=== PATIENT | male | born 1965 | race Hispanic/Latino ===

== ENCOUNTER 2024-05-11 14:56 | Inpatient (IN) | payer MEDICARE ==
[2024-05-11] VITALS (13 sets, daily range): BP systolic 123–159; BP diastolic 61–105; PULSE 105–116; RESP 16–33; TEMP 98.6–98.7; O2SAT 92–100
[~2024-05-11] VITALS: Ht 160 cm; Wt 73.0 kg
[~2024-05-11 14:56] MED LIST: EPINEPHRINE HCL 1:1000 1ML 1 MG/ML AMP ONE; ROPIVACAINE 0.5% 5 MG/ML 30 ML SDV ONE
[2024-05-11] MEDS ORDERED: SODIUM CHLORIDE 0.9% 1000ML 1,000 ML IV SCH (15:45)
[2024-05-11 15:53] LABS: BASOPHILS # (AUTO) 0.1 (0.0-0.1); BASOPHILS % 0.5 % (0.0-1.0); EOSINOPHILS # (AUTO) 0.1 (0.0-0.4); EOSINOPHILS % 0.4 % (0.0-6.0); HEMOGLOBIN 14.5 g/dL (14.0-18.0); LYMPHOCYTES # (AUTO) 0.8 (1.0-3.2); LYMPHOCYTES % 3.1 % (18.0-39.1); MEAN CORPUSCULAR HEMOGLOBIN 33.2 pg (28-32); MEAN CORPUSCULAR HGB CONC 34.5 g/dL (31-35); MEAN CORPUSCULAR VOLUME 96.1 fL (81-99); MONOCYTES # (AUTO) 1.7 (0.2-0.8); MONOCYTES % 6.8 % (4.4-11.3); NEUTROPHILS % 86.2 % (38.7-80.0); PLATELET COUNT 441 x10e3/uL (140-360); RED BLOOD COUNT 4.37 x10e6/uL (4.3-5.7); RED CELL DISTRIBUTION WIDTH 12.9 % (11.7-14.4)
[2024-05-11 16:08] LABS: ALBUMIN 2.5 g/dL (3.5-5.0); ALBUMIN/GLOBULIN RATIO 0.6 (0.8-2.0); ANION GAP 23.9 mmol/L (8-16); BILIRUBIN,TOTAL 0.6 mg/dL (0.2-1.2); CALCIUM 9.4 mg/dL (8.4-10.2); CREATININE, SERUM 1.06 mg/dL (0.72-1.25); TOTAL PROTEIN 6.9 g/dL (6.5-8.1)
[2024-05-11 16:17] LABS: POTASSIUM 2.9 mmol/L (3.5-5.1)
[2024-05-11 16:36] LABS: CLARITY,URINE CLEAR (CLEAR); COLOR,URINE YELLOW (YELLOW); GLUCOSE, URINE 500 (NEGATIVE); KETONES,URINE >=160 (NEGATIVE); LEUKOCYTE ESTERASE ,URINE NEGATIVE (NEGATIVE); NITRITE,URINE NEGATIVE (NEGATIVE); PH,URINE 6 (5 - 7); PROTEIN,URINE DIPSTICK 2+ (NEGATIVE)
[2024-05-11 16:37] LABS: BILIRUBIN,URINE SMALL (NEGATIVE); URINE UROBILINOGEN 1 mg/dL (0.2 - 1)
[2024-05-11 16:50] LABS: BACTERIA,URINE MODERATE /HPF; EPITHELIAL CELLS,URINE RARE /LPF; RBC,URINE 0-5 /HPF (0-5)
[2024-05-11] MEDS: LACTATED RINGER'S 1,000 ML INJ ONE ×2 (16:53→16:55)
[2024-05-11] MEDS: POTASSIUM CHLORIDE 20MEQ/100ML 100 ML IV ONE (16:56)
[2024-05-11] MEDS ORDERED: MAGNESIUM SULF 1GRAM/DEXTROSE 100 ML IV PRN (17:15)
[2024-05-11 17:16] LABS: ABG HCO3 5 mmol/L (22-26); ABG PCO2 11 mmHg (35-45); ABG PH 7.23 (7.35-7.45); ABG PO2 73 mmHg (80-105); ABG TCO2 5
[2024-05-11 17:43] LABS: MAGNESIUM 2.3 MG/DL (1.3-2.1)
[2024-05-11] MEDS: SODIUM BICARBONATE 8.4% VIAL 150 ML in DEXTROSE 5% 1,000 ML IV ONE (19:06)
[2024-05-11] MEDS: SODIUM CHLORIDE 0.9% 1000ML 1,000 ML IV SCH (19:16)
[2024-05-11] MEDS: INSULIN REGULAR, HUMAN 3ML VL 100 UNIT in SODIUM CHLORIDE 0.9% 99 ML IV SCH (20:12)
[2024-05-11] MEDS: DEXTROSE 5%/0.45% SOD CHL 1,000 ML IV SCH (21:34)
[2024-05-11] MEDS ORDERED: POLYETHYLENE GLYCOL 3350 17 GM PACK PO PRN (21:45)
[2024-05-11] MEDS ORDERED: ONDANSETRON HCL INJ 2MG/ML 2ML 2 MG/ML VIAL IV PRN (21:45)
[2024-05-11] MEDS ORDERED: MAGNESIUM/ALUMINUM/SIMETHICONE 30 ML UDC PO PRN (21:45)
[2024-05-11 22:16] LABS: ANION GAP 18.7 mmol/L (8-16); CALCIUM 9.2 mg/dL (8.4-10.2); CREATININE, SERUM 0.88 mg/dL (0.72-1.25); MAGNESIUM 2.1 MG/DL (1.3-2.1)
[2024-05-11 22:28] LABS: POTASSIUM 2.7 mmol/L (3.5-5.1)
[2024-05-11] MEDS: POTASSIUM CHLORIDE 20MEQ/100ML 200 ML IV PRN (22:49)
[2024-05-11] MEDS: POTASSIUM CHLORIDE 20MEQ/100ML 200 ML ONE (22:53)
[2024-05-12] VITALS (26 sets, daily range): BP systolic 116–164; BP diastolic 52–111; PULSE 79–119; RESP 18–33; TEMP 98.6–102.2; O2SAT 82–98
[2024-05-12 02:09] LABS: ANION GAP 17.1 mmol/L (8-16); CREATININE, SERUM 0.79 mg/dL (0.72-1.25)
[2024-05-12 02:12] LABS: POTASSIUM 3.1 mmol/L (3.5-5.1)
[2024-05-12] MEDS: ACETAMINOPHEN 325 MG TAB PO PRN (04:33)
[2024-05-12 05:51] LABS: BASOPHILS % 0.2 % (0.0-1.0); EOSINOPHILS # (AUTO) 0.1 (0.0-0.4); EOSINOPHILS % 0.3 % (0.0-6.0); HEMATOCRIT 31.8 % (38.2-49.6); HEMOGLOBIN 11.6 g/dL (14.0-18.0); LYMPHOCYTES % 5.4 % (18.0-39.1); MEAN CORPUSCULAR HEMOGLOBIN 33.6 pg (28-32); MEAN CORPUSCULAR HGB CONC 36.5 g/dL (31-35); MEAN CORPUSCULAR VOLUME 92.2 fL (81-99); MONOCYTES % 5.3 % (4.4-11.3); NEUTROPHILS # (AUTO) 16.5 (2.1-6.9); PLATELET COUNT 339 x10e3/uL (140-360); RED BLOOD COUNT 3.45 x10e6/uL (4.3-5.7); RED CELL DISTRIBUTION WIDTH 12.5 % (11.7-14.4); WHITE BLOOD COUNT 18.98 x10e3/uL (4.8-10.8)
[2024-05-12 06:21] LABS: CHOL/HDL RATIO 8.2 (3.9-4.7)
[2024-05-12 06:22] LABS: ANION GAP 16.4 mmol/L (8-16); CALCIUM 8.5 mg/dL (8.4-10.2); CREATININE, SERUM 0.79 mg/dL (0.72-1.25); MAGNESIUM 2.1 MG/DL (1.3-2.1)
[2024-05-12 06:26] LABS: POTASSIUM 2.4 mmol/L (3.5-5.1)
[2024-05-12] MEDS: POTASSIUM CHLORIDE 20MEQ/100ML 200 ML ONE (06:34)
[2024-05-12] MEDS: MULTIVITAMINS/MINERALS TAB PO SCH (08:26)
[2024-05-12] MEDS: THIAMINE HCL 100 MG TAB PO SCH (08:26)
[2024-05-12] MEDS: DOCUSATE SODIUM 100 MG CAP PO SCH (08:26)
[2024-05-12] MEDS: POTASSIUM CHLORIDE 20 MEQ TAB CR PO ONE (10:26)
[2024-05-12] MEDS: Vancomycin IV 1 GM in SODIUM CHLORIDE 0.9% 250ML 250 ML IV ONE (10:27)
[2024-05-12 12:06] LABS: CALCIUM 9.1 mg/dL (8.4-10.2); CREATININE, SERUM 0.62 mg/dL (0.72-1.25); MAGNESIUM 2.1 MG/DL (1.3-2.1)
[2024-05-12] MEDS: ENOXAPARIN SOD INJ 40 MG/0.4 ML SYR SC SCH (18:28)
[2024-05-12] MEDS: POTASSIUM CHLORIDE 20MEQ/100ML 100 ML IV SCH (18:29)
[2024-05-12] MEDS: SODIUM CHLORIDE 0.9% 250ML 250 ML ONE (20:26)
[2024-05-13] VITALS (27 sets, daily range): BP systolic 101–144; BP diastolic 53–107; PULSE 65–101; RESP 22–38; TEMP 97.8–102.9; O2SAT 94–100
[2024-05-13 00:37] LABS: ANION GAP 11.2 mmol/L (8-16); CALCIUM 8.2 mg/dL (8.4-10.2); CREATININE, SERUM 0.58 mg/dL (0.72-1.25)
[2024-05-13 00:54] LABS: POTASSIUM 3.2 mmol/L (3.5-5.1)
[2024-05-13] MEDS: POTASSIUM CHLORIDE 20MEQ/100ML 100 ML ONE (07:41)
[2024-05-13 08:28] LABS: BASOPHILS # (AUTO) 0.1 (0.0-0.1); BASOPHILS % 0.5 % (0.0-1.0); EOSINOPHILS % 0.1 % (0.0-6.0); HEMATOCRIT 33.6 % (38.2-49.6); HEMOGLOBIN 12.1 g/dL (14.0-18.0); LYMPHOCYTES # (AUTO) 1.7 (1.0-3.2); LYMPHOCYTES % 8.6 % (18.0-39.1); MEAN CORPUSCULAR HEMOGLOBIN 32.9 pg (28-32); MEAN CORPUSCULAR VOLUME 91.3 fL (81-99); MONOCYTES # (AUTO) 1.3 (0.2-0.8); MONOCYTES % 6.6 % (4.4-11.3); NEUTROPHILS # (AUTO) 16.5 (2.1-6.9); NEUTROPHILS % 82.3 % (38.7-80.0); PLATELET COUNT 292 x10e3/uL (140-360); RED BLOOD COUNT 3.68 x10e6/uL (4.3-5.7); RED CELL DISTRIBUTION WIDTH 12.3 % (11.7-14.4); WHITE BLOOD COUNT 20.11 x10e3/uL (4.8-10.8)
[2024-05-13] MEDS: INSULIN GLARGINE 100 UNITS/ML VIAL SQ SCH (08:37)
[2024-05-13 08:45] LABS: ANION GAP 6.9 mmol/L (8-16); CALCIUM 8.7 mg/dL (8.4-10.2); CREATININE, SERUM 0.58 mg/dL (0.72-1.25); MAGNESIUM 1.8 MG/DL (1.3-2.1)
[2024-05-13 08:49] LABS: POTASSIUM 2.9 mmol/L (3.5-5.1)
[2024-05-13] MEDS: POTASSIUM CHLORIDE 20 MEQ TAB CR PO STA (09:01)
[2024-05-13] MEDS: Vancomycin IV 1 GM in SODIUM CHLORIDE 0.9% 250ML 250 ML IV ONE (09:01)
[2024-05-13 10:04] LABS: LYMPHOCYTES % (MANUAL) 7 % (19-48); MONOCYTES % (MANUAL) 7 % (3.4-9.0); NEUTROPHILS % (MANUAL) 86 % (40-74); PLATELET ESTIMATE ADEQUATE; PLATELET MORPHOLOGY COMMENT NORMAL; RBC MORPHOLOGY COMMENT NORMAL
[2024-05-13] MEDS: INSULIN LISPRO 100 UNIT/1 ML 3ML VIAL SQ SCH ×2 (11:10→11:30)
[2024-05-13] MEDS: POTASSIUM CHLORIDE 20 MEQ TAB CR PO ONE (17:01)
[2024-05-13] MEDS: CEFEPIME 2 GM in SODIUM CHLORIDE 0.9% 100 ML IV SCH (20:35)
[2024-05-13 22:51] LABS: ANION GAP 9.4 mmol/L (8-16); CALCIUM 7.9 mg/dL (8.4-10.2); CREATININE, SERUM 0.66 mg/dL (0.72-1.25)
[2024-05-13 22:52] LABS: POTASSIUM 3.4 mmol/L (3.5-5.1)
[2024-05-14] VITALS (18 sets, daily range): BP systolic 122–159; BP diastolic 55–77; PULSE 70–95; RESP 23–32; TEMP 99.1–100.5; O2SAT 91–99
[2024-05-14 06:33] LABS: BASOPHILS # (AUTO) 0.1 (0.0-0.1); BASOPHILS % 0.4 % (0.0-1.0); EOSINOPHILS % 0.1 % (0.0-6.0); HEMATOCRIT 27.4 % (38.2-49.6); HEMOGLOBIN 10.1 g/dL (14.0-18.0); LYMPHOCYTES # (AUTO) 1.4 (1.0-3.2); MEAN CORPUSCULAR HEMOGLOBIN 33.3 pg (28-32); MEAN CORPUSCULAR HGB CONC 36.9 g/dL (31-35); MEAN CORPUSCULAR VOLUME 90.4 fL (81-99); MONOCYTES # (AUTO) 1.2 (0.2-0.8); MONOCYTES % 6.7 % (4.4-11.3); NEUTROPHILS # (AUTO) 14.2 (2.1-6.9); NEUTROPHILS % 82.8 % (38.7-80.0); PLATELET COUNT 240 x10e3/uL (140-360); RED BLOOD COUNT 3.03 x10e6/uL (4.3-5.7); WHITE BLOOD COUNT 17.14 x10e3/uL (4.8-10.8)
[2024-05-14 07:21] LABS: ALBUMIN 1.4 g/dL (3.5-5.0); ALBUMIN/GLOBULIN RATIO 0.5 (0.8-2.0); ANION GAP 9.1 mmol/L (8-16); BILIRUBIN,TOTAL 0.5 mg/dL (0.2-1.2); CALCIUM 7.1 mg/dL (8.4-10.2); CREATININE, SERUM 0.53 mg/dL (0.72-1.25); TOTAL PROTEIN 4.4 g/dL (6.5-8.1)
[2024-05-14 07:22] LABS: POTASSIUM 3.1 mmol/L (3.5-5.1)
[2024-05-14] MEDS: Vancomycin IV 1 GM in SODIUM CHLORIDE 0.9% 250ML 250 ML IV SCH (08:17)
[2024-05-14] MEDS: INSULIN GLARGINE 100 UNITS/ML VIAL SQ SCH (08:19)
[2024-05-14] MEDS ORDERED: SODIUM CHLORIDE 0.9% 1000ML 1,000 ML IV SCH (10:30)
[2024-05-14] MEDS: METRONIDAZOLE 500MG/NS 100ML 100 ML IV SCH (11:01)
[2024-05-14] MEDS: POTASSIUM CHLORIDE 10MEQ EA PO ONE (11:20)
[2024-05-14 18:04] LABS: BODY FLUID TYPE SYNOVIAL
[2024-05-14 18:05] LABS: BODY FLUID APPEARANCE TURBID
[2024-05-14 18:06] LABS: RBC,BODY FLUID 74000 cells/uL
[2024-05-14 19:42] LABS: LYMPHOCYTES,BODY FLUID 64 %; MONO/MACROPHG,BODY FLUID 23 %; NEUTROPHILS,BODY FLUID 13 %; TOTAL CELLS COUNTED (DIFF) 100
[2024-05-15] VITALS (11 sets, daily range): BP systolic 119–152; BP diastolic 64–126; PULSE 60–88; RESP 15–27; TEMP 98.4–100; O2SAT 93–99
[2024-05-15 06:43] LABS: HEMATOCRIT 29.3 % (38.2-49.6); HEMOGLOBIN 10.4 g/dL (14.0-18.0); MEAN CORPUSCULAR HEMOGLOBIN 32.6 pg (28-32); MEAN CORPUSCULAR HGB CONC 35.5 g/dL (31-35); MEAN CORPUSCULAR VOLUME 91.8 fL (81-99); PLATELET COUNT 254 x10e3/uL (140-360); RED BLOOD COUNT 3.19 x10e6/uL (4.3-5.7); WHITE BLOOD COUNT 18.75 x10e3/uL (4.8-10.8)
[2024-05-15 07:24] LABS: ALBUMIN 1.5 g/dL (3.5-5.0); ALBUMIN/GLOBULIN RATIO 0.5 (0.8-2.0); ANION GAP 8.3 mmol/L (8-16); BILIRUBIN,TOTAL 0.6 mg/dL (0.2-1.2); CREATININE, SERUM 0.55 mg/dL (0.72-1.25); TOTAL PROTEIN 4.8 g/dL (6.5-8.1)
[2024-05-15 07:25] LABS: POTASSIUM 3.3 mmol/L (3.5-5.1)
[2024-05-15 11:53] LABS: BAND NEUTROPHILS % (MANUAL) 1 %; EOSINOPHILS % (MANUAL) 1 % (0-7); LYMPHOCYTES % (MANUAL) 2 % (19-48); MONOCYTES % (MANUAL) 1 % (3.4-9.0); NEUTROPHILS % (MANUAL) 93 % (40-74); REACTIVE LYMPHOCYTES 2
[2024-05-15 11:55] LABS: PLATELET ESTIMATE ADEQUATE; PLATELET MORPHOLOGY COMMENT NORMAL; RBC MORPHOLOGY COMMENT NORMAL; TOXIC GRANULATION MODERATE
[2024-05-15] MEDS ORDERED: LIDOCAINE HCL 2% LOCAL INJ 5 ML SDV VIAL INJ ONE (12:21)
[2024-05-15] MEDS ORDERED: PROPOFOL IV EMULSION 10 MG/ML 20 ML VIAL ONE (12:21)
[2024-05-15] MEDS ORDERED: KETOROLAC TROMETHAMINE 30 MG/ML VIAL ONE (12:44)
[2024-05-15] MEDS ORDERED: FENTANYL CITRATE/PF 100MCG/2 ML INJ ONE ×3 (13:30→13:45)
[2024-05-15] MEDS ORDERED: MIDAZOLAM HCL 2 MG/2 ML VIAL ONE (13:45)
[2024-05-15] MEDS ORDERED: Vancomycin IV 1 GM VIAL ONE (15:07)
[2024-05-15 19:01] LABS: GLUCOSE,BODY FLUID 172 mg/dL
[2024-05-16] VITALS (18 sets, daily range): BP systolic 120–159; BP diastolic 61–79; PULSE 62–90; RESP 13–24; TEMP 97.6–99.2; O2SAT 90–100
[2024-05-16 06:33] LABS: HEMATOCRIT 27.9 % (38.2-49.6); HEMOGLOBIN 10.1 g/dL (14.0-18.0); MEAN CORPUSCULAR HEMOGLOBIN 33.7 pg (28-32); MEAN CORPUSCULAR HGB CONC 36.2 g/dL (31-35); PLATELET COUNT 300 x10e3/uL (140-360); RED CELL DISTRIBUTION WIDTH 13.6 % (11.7-14.4); WHITE BLOOD COUNT 19.15 x10e3/uL (4.8-10.8)
[2024-05-16 06:51] LABS: ALBUMIN 1.5 g/dL (3.5-5.0); ALBUMIN/GLOBULIN RATIO 0.4 (0.8-2.0); ANION GAP 9.5 mmol/L (8-16); BILIRUBIN,TOTAL 0.5 mg/dL (0.2-1.2); CALCIUM 7.7 mg/dL (8.4-10.2); CREATININE, SERUM 0.61 mg/dL (0.72-1.25); POTASSIUM 3.5 mmol/L (3.5-5.1); TOTAL PROTEIN 4.9 g/dL (6.5-8.1)
[2024-05-16] MEDS: BALSAM PERU/CASTOR OIL 60 GM OINT...G. TP SCH (08:18)
[2024-05-16 09:20] LABS: MONOCYTES % (MANUAL) 3 % (3.4-9.0); NEUTROPHILS % (MANUAL) 97 % (40-74)
[2024-05-16 09:21] LABS: PLATELET ESTIMATE ADEQUATE; PLATELET MORPHOLOGY COMMENT NORMAL; RBC MORPHOLOGY COMMENT NORMAL
[2024-05-16] MEDS: VANCOMYCIN 1.25GM/250 ML (PEG) 250 ML IV SCH (09:26)
[2024-05-16] MEDS: Morphine 4mg INJECTION 4 MG/ML INJ IV PRN (15:31)
[2024-05-17] VITALS (9 sets, daily range): BP systolic 113–177; BP diastolic 61–79; PULSE 75–88; RESP 18; TEMP 98–99; O2SAT 96–100
[2024-05-17 05:19] LABS: HEMATOCRIT 27.5 % (38.2-49.6); HEMOGLOBIN 9.4 g/dL (14.0-18.0); MEAN CORPUSCULAR HEMOGLOBIN 32.8 pg (28-32); MEAN CORPUSCULAR HGB CONC 34.2 g/dL (31-35); MEAN CORPUSCULAR VOLUME 95.8 fL (81-99); PLATELET COUNT 346 x10e3/uL (140-360); RED BLOOD COUNT 2.87 x10e6/uL (4.3-5.7); RED CELL DISTRIBUTION WIDTH 13.7 % (11.7-14.4); WHITE BLOOD COUNT 16.98 x10e3/uL (4.8-10.8)
[2024-05-17 05:52] LABS: ALBUMIN 1.5 g/dL (3.5-5.0); ALBUMIN/GLOBULIN RATIO 0.4 (0.8-2.0); ANION GAP 11.2 mmol/L (8-16); BILIRUBIN,TOTAL 0.6 mg/dL (0.2-1.2); CALCIUM 7.5 mg/dL (8.4-10.2); CREATININE, SERUM 0.57 mg/dL (0.72-1.25)
[2024-05-17 05:53] LABS: POTASSIUM 3.2 mmol/L (3.5-5.1)
[2024-05-17] MEDS: GUAIFENESIN/DEXTROMETHORPHAN LIQD 5 ML UDC PO PRN (08:18)
[2024-05-17] MEDS: HYDRALAZINE HCL 20 MG/ML VIAL IV PRN (08:21)
[2024-05-17 09:02] LABS: LYMPHOCYTES % (MANUAL) 6 % (19-48); MONOCYTES % (MANUAL) 7 % (3.4-9.0); NEUTROPHILS % (MANUAL) 87 % (40-74); PLATELET ESTIMATE ADEQUATE; PLATELET MORPHOLOGY COMMENT NORMAL; RBC MORPHOLOGY COMMENT NORMAL
[2024-05-17] MEDS ORDERED: GADOBENATE DIMEGLUMINE 1 ML IV ONE (11:31)
[2024-05-17] MEDS: CEFAZOLIN SODIUM 2 GM in SODIUM CHLORIDE 0.9% 100 ML IV SCH (11:53)
[2024-05-17] MEDS: SODIUM CHLORIDE 0.9% 250ML 250 ML ONE (17:21)
[2024-05-18] VITALS (11 sets, daily range): BP systolic 146–171; BP diastolic 63–87; PULSE 76–85; RESP 17–20; TEMP 98.8–100.2; O2SAT 79–100
[2024-05-18 07:00] LABS: HEMATOCRIT 26.3 % (38.2-49.6); MEAN CORPUSCULAR HGB CONC 34.2 g/dL (31-35); MEAN CORPUSCULAR VOLUME 96.3 fL (81-99); PLATELET COUNT 306 x10e3/uL (140-360); RED BLOOD COUNT 2.73 x10e6/uL (4.3-5.7); WHITE BLOOD COUNT 14.04 x10e3/uL (4.8-10.8)
[2024-05-18 07:21] LABS: ALBUMIN 1.5 g/dL (3.5-5.0); ALBUMIN/GLOBULIN RATIO 0.4 (0.8-2.0); BILIRUBIN,TOTAL 0.4 mg/dL (0.2-1.2); CALCIUM 7.6 mg/dL (8.4-10.2); CREATININE, SERUM 0.58 mg/dL (0.72-1.25); TOTAL PROTEIN 5.1 g/dL (6.5-8.1)
[2024-05-18 08:45] LABS: BAND NEUTROPHILS % (MANUAL) 1 %; LYMPHOCYTES % (MANUAL) 4 % (19-48); MONOCYTES % (MANUAL) 3 % (3.4-9.0); NEUTROPHILS % (MANUAL) 92 % (40-74); PLATELET ESTIMATE ADEQUATE; PLATELET MORPHOLOGY COMMENT NORMAL; RBC MORPHOLOGY COMMENT NORMAL
[2024-05-18] MEDS: ENOXAPARIN SOD INJ 40 MG/0.4 ML SYR SC SCH (17:07)
[2024-05-18] MEDS ORDERED: ONDANSETRON HCL 4 MG ORAL DISINTEGRATING TAB PO PRN (19:30)
[2024-05-19] VITALS (7 sets, daily range): BP systolic 135–162; BP diastolic 70–76; PULSE 59–81; RESP 18–20; TEMP 98.8–100.4; O2SAT 93–99
[2024-05-19] MEDS: LIDOCAINE 4% PATCH TP SCH (13:50)
[2024-05-19 16:25] LABS: BASOPHILS % 0.1 % (0.0-1.0); EOSINOPHILS % 0.3 % (0.0-6.0); HEMATOCRIT 24.4 % (38.2-49.6); HEMOGLOBIN 8.4 g/dL (14.0-18.0); LYMPHOCYTES # (AUTO) 1.2 (1.0-3.2); LYMPHOCYTES % 8.9 % (18.0-39.1); MEAN CORPUSCULAR HEMOGLOBIN 33.1 pg (28-32); MEAN CORPUSCULAR HGB CONC 34.4 g/dL (31-35); MEAN CORPUSCULAR VOLUME 96.1 fL (81-99); MONOCYTES # (AUTO) 0.7 (0.2-0.8); MONOCYTES % 4.9 % (4.4-11.3); NEUTROPHILS # (AUTO) 11.6 (2.1-6.9); NEUTROPHILS % 85.1 % (38.7-80.0); PLATELET COUNT 437 x10e3/uL (140-360); RED BLOOD COUNT 2.54 x10e6/uL (4.3-5.7); RED CELL DISTRIBUTION WIDTH 14.3 % (11.7-14.4); WHITE BLOOD COUNT 13.58 x10e3/uL (4.8-10.8)
[2024-05-19 16:41] LABS: ANION GAP 13.6 mmol/L (8-16); CALCIUM 7.6 mg/dL (8.4-10.2); CREATININE, SERUM 0.55 mg/dL (0.72-1.25)
[2024-05-19] MEDS: DEXTROSE 50% SYRINGE 50 ML IV PRN (16:43)
[2024-05-19 16:45] LABS: POTASSIUM 2.6 mmol/L (3.5-5.1)
[2024-05-19] MEDS ORDERED: DEXTROSE 50% SYRINGE 50 ML IV PRN (19:15)
[2024-05-19] MEDS: POTASSIUM CHLORIDE 20MEQ/100ML 100 ML IV ONE (22:11)
[2024-05-20] VITALS (10 sets, daily range): BP systolic 151–180; BP diastolic 73–104; PULSE 56–88; RESP 17–19; TEMP 98.2–99.1; O2SAT 95–100
[2024-05-20 05:20] LABS: HEMATOCRIT 24.8 % (38.2-49.6); HEMOGLOBIN 8.4 g/dL (14.0-18.0); MEAN CORPUSCULAR HEMOGLOBIN 33.2 pg (28-32); MEAN CORPUSCULAR HGB CONC 33.9 g/dL (31-35); PLATELET COUNT 301 x10e3/uL (140-360); RED BLOOD COUNT 2.53 x10e6/uL (4.3-5.7); RED CELL DISTRIBUTION WIDTH 14.3 % (11.7-14.4); WHITE BLOOD COUNT 11.66 x10e3/uL (4.8-10.8)
[2024-05-20 05:40] LABS: ALBUMIN 1.6 g/dL (3.5-5.0); ALBUMIN/GLOBULIN RATIO 0.4 (0.8-2.0); ANION GAP 9.7 mmol/L (8-16); BILIRUBIN,TOTAL 0.4 mg/dL (0.2-1.2); CALCIUM 7.9 mg/dL (8.4-10.2); CREATININE, SERUM 0.53 mg/dL (0.72-1.25); TOTAL PROTEIN 5.3 g/dL (6.5-8.1)
[2024-05-20 05:47] LABS: POTASSIUM 2.7 mmol/L (3.5-5.1)
[2024-05-20] MEDS: POTASSIUM CHLORIDE 20MEQ/100ML 100 ML IV ONE ×2 (06:14→10:15)
[2024-05-20 08:40] LABS: LYMPHOCYTES % (MANUAL) 9 % (19-48); MONOCYTES % (MANUAL) 4 % (3.4-9.0); NEUTROPHILS % (MANUAL) 87 % (40-74)
[2024-05-20 08:41] LABS: PLATELET ESTIMATE ADEQUATE; PLATELET MORPHOLOGY COMMENT NORMAL; RBC MORPHOLOGY COMMENT NORMAL
[2024-05-20] MEDS: POTASSIUM CHLORIDE 20 MEQ TAB CR PO ONE (10:15)
[2024-05-20] MEDS: ALTEPLASE RECOMBINANT 2 MG/2 ML VIAL IV ONE (13:41)
[2024-05-21] VITALS (10 sets, daily range): BP systolic 137–175; BP diastolic 63–98; PULSE 62–89; RESP 18; TEMP 98–99.4; O2SAT 92–98
[2024-05-21 09:38] LABS: BASOPHILS % 0.3 % (0.0-1.0); EOSINOPHILS % 0.4 % (0.0-6.0); HEMATOCRIT 24.6 % (38.2-49.6); HEMOGLOBIN 8.3 g/dL (14.0-18.0); LYMPHOCYTES # (AUTO) 1.1 (1.0-3.2); LYMPHOCYTES % 10.9 % (18.0-39.1); MEAN CORPUSCULAR HEMOGLOBIN 32.9 pg (28-32); MEAN CORPUSCULAR HGB CONC 33.7 g/dL (31-35); MEAN CORPUSCULAR VOLUME 97.6 fL (81-99); MONOCYTES # (AUTO) 0.5 (0.2-0.8); MONOCYTES % 4.9 % (4.4-11.3); NEUTROPHILS # (AUTO) 8.6 (2.1-6.9); PLATELET COUNT 434 x10e3/uL (140-360); RED BLOOD COUNT 2.52 x10e6/uL (4.3-5.7); RED CELL DISTRIBUTION WIDTH 14.2 % (11.7-14.4); WHITE BLOOD COUNT 10.35 x10e3/uL (4.8-10.8)
[2024-05-21 09:54] LABS: ANION GAP 15.2 mmol/L (8-16); CREATININE, SERUM 0.54 mg/dL (0.72-1.25); MAGNESIUM 1.8 MG/DL (1.3-2.1); PHOSPHORUS 3.1 MG/DL (2.3-4.7)
[2024-05-21 09:55] LABS: POTASSIUM 3.2 mmol/L (3.5-5.1)
[2024-05-21] MEDS: POTASSIUM CHLORIDE 10MEQ EA PO ONE (11:37)
[2024-05-21] MEDS: SODIUM CHLORIDE 1 GM TAB PO SCH (11:38)
[2024-05-22] VITALS (8 sets, daily range): BP systolic 140–184; BP diastolic 73–99; PULSE 70–82; RESP 18–20; TEMP 97.7–99.9; O2SAT 94–99
[2024-05-22] MEDS: MELATONIN 3 MG TAB PO PRN (00:13)
[2024-05-22 05:56] LABS: BASOPHILS % 0.3 % (0.0-1.0); EOSINOPHILS # (AUTO) 0.1 (0.0-0.4); EOSINOPHILS % 0.8 % (0.0-6.0); HEMATOCRIT 23.5 % (38.2-49.6); HEMOGLOBIN 7.9 g/dL (14.0-18.0); LYMPHOCYTES # (AUTO) 1.8 (1.0-3.2); LYMPHOCYTES % 17.3 % (18.0-39.1); MEAN CORPUSCULAR HEMOGLOBIN 33.1 pg (28-32); MEAN CORPUSCULAR HGB CONC 33.6 g/dL (31-35); MEAN CORPUSCULAR VOLUME 98.3 fL (81-99); MONOCYTES # (AUTO) 0.6 (0.2-0.8); MONOCYTES % 5.8 % (4.4-11.3); NEUTROPHILS # (AUTO) 7.9 (2.1-6.9); NEUTROPHILS % 75.5 % (38.7-80.0); PLATELET COUNT 528 x10e3/uL (140-360); RED BLOOD COUNT 2.39 x10e6/uL (4.3-5.7); RED CELL DISTRIBUTION WIDTH 14.3 % (11.7-14.4); WHITE BLOOD COUNT 10.43 x10e3/uL (4.8-10.8)
[2024-05-22 06:20] LABS: ANION GAP 9.9 mmol/L (8-16); CALCIUM 7.9 mg/dL (8.4-10.2); CREATININE, SERUM 0.52 mg/dL (0.72-1.25); POTASSIUM 3.9 mmol/L (3.5-5.1)
[2024-05-22 06:37] LABS: MAGNESIUM 1.8 MG/DL (1.3-2.1); PHOSPHORUS 3.8 MG/DL (2.3-4.7)
[2024-05-23] VITALS (9 sets, daily range): BP systolic 133–171; BP diastolic 68–85; PULSE 69–87; RESP 17–22; TEMP 98.3–100; O2SAT 88–100
[2024-05-23] MEDS: Morphine 4mg INJECTION 4 MG/ML INJ IV PRN (21:34)
[2024-05-24] VITALS (10 sets, daily range): BP systolic 103–174; BP diastolic 59–85; PULSE 71–87; RESP 17–19; TEMP 98.2–100.5; O2SAT 94–99
[2024-05-24 06:12] LABS: BASOPHILS % 0.3 % (0.0-1.0); EOSINOPHILS # (AUTO) 0.1 (0.0-0.4); EOSINOPHILS % 0.7 % (0.0-6.0); HEMATOCRIT 24.2 % (38.2-49.6); HEMOGLOBIN 7.9 g/dL (14.0-18.0); LYMPHOCYTES # (AUTO) 1.6 (1.0-3.2); LYMPHOCYTES % 16.8 % (18.0-39.1); MEAN CORPUSCULAR HEMOGLOBIN 32.4 pg (28-32); MEAN CORPUSCULAR HGB CONC 32.6 g/dL (31-35); MEAN CORPUSCULAR VOLUME 99.2 fL (81-99); MONOCYTES # (AUTO) 0.6 (0.2-0.8); MONOCYTES % 6.5 % (4.4-11.3); NEUTROPHILS % 75.3 % (38.7-80.0); PLATELET COUNT 476 x10e3/uL (140-360); RED BLOOD COUNT 2.44 x10e6/uL (4.3-5.7); RED CELL DISTRIBUTION WIDTH 14.1 % (11.7-14.4); WHITE BLOOD COUNT 9.34 x10e3/uL (4.8-10.8)
[2024-05-24 06:57] LABS: BLOOD UREA NITROGEN < 5 mg/dL (7-26); BUN/CREATININE RATIO 9 (6-25); CALCIUM 7.1 mg/dL (8.4-10.2); CREATININE, SERUM 0.53 mg/dL (0.72-1.25); EST GLOMERULAR FILTRATION RATE 114 ML/MIN (>=60); GLUCOSE 129 mg/dL (74-118)
[2024-05-24] MEDS ORDERED: Vancomycin IV 1 GM VIAL ONE (07:56)
[2024-05-24 08:59] LABS: CHLORIDE 101 mmol/L (98-107); POTASSIUM 3.6 mmol/L (3.5-5.1); SODIUM 130 mmol/L (136-145)
[2024-05-24 10:23] LABS: CARBON DIOXIDE 21 mmol/L (22-29)
[2024-05-24 10:25] LABS: ANION GAP 11.6 mmol/L (8-16)
[2024-05-24] MEDS: HYDROMORPHONE 1MG/1ML INJ ONE (11:32)
[2024-05-24] MEDS ORDERED: FENTANYL CITRATE/PF 100MCG/2 ML INJ ONE (14:03)
[2024-05-24] MEDS ORDERED: MIDAZOLAM HCL 2 MG/2 ML VIAL ONE (14:03)
[2024-05-24] MEDS ORDERED: DEXAMETHASONE SOD PHOS INJ 4 MG/ML SDV ONE (14:06)
[2024-05-24] MEDS ORDERED: EPHEDRINE SULFATE INJ 50 MG/ML VIAL ONE (14:06)
[2024-05-24] MEDS ORDERED: PROPOFOL IV EMULSION 10 MG/ML 20 ML VIAL ONE (14:06)
[2024-05-24] MEDS ORDERED: ONDANSETRON HCL INJ 2MG/ML 2ML 2 MG/ML VIAL ONE (14:06)
[2024-05-24] MEDS ORDERED: SEVOFLURANE INHAL SOLN 250 ML PEN BTL ONE (14:06)
[2024-05-24] MEDS ORDERED: SODIUM CHLORIDE 0.9% 100 ML ONE (17:03)
[2024-05-25] VITALS (13 sets, daily range): BP systolic 116–161; BP diastolic 57–77; PULSE 70–96; RESP 16–20; TEMP 98–99.2; O2SAT 93–99
[2024-05-25] MEDS: SODIUM CHLORIDE 0.9% 250ML 250 ML ONE ×2 (00:30→23:58)
[2024-05-25 10:45] LABS: ALBUMIN 1.7 g/dL (3.5-5.0); ALBUMIN/GLOBULIN RATIO 0.6 (0.8-2.0); BILIRUBIN,TOTAL 0.4 mg/dL (0.2-1.2); CREATININE, SERUM 0.49 mg/dL (0.72-1.25); TOTAL PROTEIN 4.5 g/dL (6.5-8.1)
[2024-05-25 10:50] LABS: BASOPHILS % 0.5 % (0.0-1.0); EOSINOPHILS % 0.2 % (0.0-6.0); HEMATOCRIT 21.2 % (38.2-49.6); LYMPHOCYTES # (AUTO) 0.9 (1.0-3.2); LYMPHOCYTES % 10.5 % (18.0-39.1); MEAN CORPUSCULAR HEMOGLOBIN 32.4 pg (28-32); MEAN CORPUSCULAR HGB CONC 32.1 g/dL (31-35); MONOCYTES # (AUTO) 0.6 (0.2-0.8); MONOCYTES % 7.3 % (4.4-11.3); NEUTROPHILS % 81.2 % (38.7-80.0); PLATELET COUNT 425 x10e3/uL (140-360); WHITE BLOOD COUNT 8.66 x10e3/uL (4.8-10.8)
[2024-05-25 11:06] LABS: HEMOGLOBIN 6.8 g/dL (14.0-18.0)
[2024-05-25 16:30] LABS: ANION GAP 14.3 mmol/L (8-16); CALCIUM 7.3 mg/dL (8.4-10.2); POTASSIUM 4.3 mmol/L (3.5-5.1)
[2024-05-25 20:41] LABS: HEMATOCRIT 21.5 % (38.2-49.6)
[2024-05-25 20:45] LABS: HEMOGLOBIN 6.9 g/dL (14.0-18.0)
[2024-05-25] MEDS: SODIUM CHLORIDE 0.9% 250ML 250 ML IV ONE (23:58)
[2024-05-26] VITALS (10 sets, daily range): BP systolic 153–183; BP diastolic 75–86; PULSE 71–88; RESP 16–22; TEMP 97.7–98.4; O2SAT 95–98
[2024-05-26] MEDS: SODIUM CHLORIDE 0.9% 250ML 250 ML ONE (02:11)
[2024-05-26 09:31] LABS: HEMATOCRIT 28.8 % (38.2-49.6); HEMOGLOBIN 9.5 g/dL (14.0-18.0)
[2024-05-26] MEDS: PANTOPRAZOLE SOD 40 MG TABEC PO SCH (14:39)
[2024-05-27] VITALS (8 sets, daily range): BP systolic 145–182; BP diastolic 66–88; PULSE 72–86; RESP 16–20; TEMP 97.8–99.2; O2SAT 93–98
[2024-05-27 06:20] LABS: BASOPHILS % 0.4 % (0.0-1.0); EOSINOPHILS # (AUTO) 0.1 (0.0-0.4); EOSINOPHILS % 1.1 % (0.0-6.0); HEMATOCRIT 26.7 % (38.2-49.6); HEMOGLOBIN 8.7 g/dL (14.0-18.0); LYMPHOCYTES # (AUTO) 1.4 (1.0-3.2); LYMPHOCYTES % 19.2 % (18.0-39.1); MEAN CORPUSCULAR HEMOGLOBIN 31.8 pg (28-32); MEAN CORPUSCULAR HGB CONC 32.6 g/dL (31-35); MEAN CORPUSCULAR VOLUME 97.4 fL (81-99); MONOCYTES # (AUTO) 0.6 (0.2-0.8); MONOCYTES % 8.1 % (4.4-11.3); NEUTROPHILS % 70.6 % (38.7-80.0); PLATELET COUNT 327 x10e3/uL (140-360); RED BLOOD COUNT 2.74 x10e6/uL (4.3-5.7); RED CELL DISTRIBUTION WIDTH 15.5 % (11.7-14.4); WHITE BLOOD COUNT 7.13 x10e3/uL (4.8-10.8)
[2024-05-28] VITALS (8 sets, daily range): BP systolic 163–188; BP diastolic 80–88; PULSE 68–83; RESP 16–20; TEMP 98.2–99.2; O2SAT 94–98
[2024-05-28 12:16] LABS: BASOPHILS % 0.5 % (0.0-1.0); EOSINOPHILS # (AUTO) 0.1 (0.0-0.4); EOSINOPHILS % 1.1 % (0.0-6.0); HEMATOCRIT 28.9 % (38.2-49.6); HEMOGLOBIN 9.4 g/dL (14.0-18.0); LYMPHOCYTES # (AUTO) 1.5 (1.0-3.2); LYMPHOCYTES % 22.6 % (18.0-39.1); MEAN CORPUSCULAR HEMOGLOBIN 31.6 pg (28-32); MEAN CORPUSCULAR HGB CONC 32.5 g/dL (31-35); MEAN CORPUSCULAR VOLUME 97.3 fL (81-99); MONOCYTES # (AUTO) 0.5 (0.2-0.8); MONOCYTES % 7.6 % (4.4-11.3); NEUTROPHILS # (AUTO) 4.5 (2.1-6.9); NEUTROPHILS % 67.9 % (38.7-80.0); PLATELET COUNT 357 x10e3/uL (140-360); RED BLOOD COUNT 2.97 x10e6/uL (4.3-5.7); RED CELL DISTRIBUTION WIDTH 15.2 % (11.7-14.4); WHITE BLOOD COUNT 6.59 x10e3/uL (4.8-10.8)
[2024-05-28] MEDS: METOPROLOL TARTRATE 25 MG TAB PO SCH (14:44)
== END 2024-05-28 17:35 | DRG 853 ==
LOC: ER 15:16 → ERHOLD 17:30 → ICU 18:22 → MED/SURG2 05-16 16:27
PROVIDERS: ADMIT Internal Medicine; ATTEND Internal Medicine
PROC: 4A033R1 Measurement of Arterial Saturation, Peripheral, Percutaneous Approach (ICD-10-PCS; 2024-05-11)
PROC: 3E0333Z Introduction of Anti-inflammatory into Peripheral Vein, Percutaneous Approach (ICD-10-PCS; 2024-05-11)
PROC: 0S9D4ZZ Drainage of Left Knee Joint, Percutaneous Endoscopic Approach (ICD-10-PCS; 2024-05-15)
PROC: 0S9D0ZZ Drainage of Left Knee Joint, Open Approach (ICD-10-PCS; 2024-05-24)
PROC: 0QDH0ZZ Extraction of Left Tibia, Open Approach (ICD-10-PCS; 2024-05-24)
PROC: 0QDC0ZZ Extraction of Left Lower Femur, Open Approach (ICD-10-PCS; principal; 2024-05-24 08:22)
PROC: 30233N1 Transfusion of Nonautologous Red Blood Cells into Peripheral Vein, Percutaneous Approach (ICD-10-PCS; 2024-05-25)
DX: A41.01 Sepsis due to Methicillin susceptible Staphylococcus aureus (principal); E11.10 Type 2 diabetes mellitus with ketoacidosis without coma; J96.01 Acute respiratory failure with hypoxia; M00.862 Arthritis due to other bacteria, left knee; N39.0 Urinary tract infection, site not specified; E87.4 Mixed disorder of acid-base balance; M60.004 Infective myositis, unspecified left leg; M86.9 Osteomyelitis, unspecified; M25.462 Effusion, left knee; F10.20 Alcohol dependence, uncomplicated; R53.1 Weakness; M71.562 Other bursitis, not elsewhere classified, left knee; E87.6 Hypokalemia; D64.9 Anemia, unspecified; Z89.431 Acquired absence of right foot; W18.30XA Fall on same level, unspecified, initial encounter
CPT/HCPCS: 36415; 36569; 36600; 51700; 71045; 80048; 80053; 80061; 80202; 81001; 82805; 82945; 82948; 83036; 83605; 83735; 84100; 84132; 84443; 85007; 85014; 85018; 85025; 85027; 85651; 86140; 86850; 86900; 86920; 87040; 87070; 87071; 87075; 87086; 87186; 87205; 89051; 89060; 93005; 93306; 93971; 94799; 96372; 99252; 99285; J0171; J0360; J0690; J0692; J1100; J1170; J1650; J1815; J1885; J2001; J2250; J2270; J2405; J2543; J2795; J2997; J3411; J3480; J7030; J7050; J7070; P9016

== ENCOUNTER 2024-07-23 18:06 | Inpatient (IN) | payer MEDICARE ==
[~2024-07-23] VITALS: Ht 160 cm; Wt 73.1 kg
[2024-07-23 19:23] LABS: BASOPHILS # (AUTO) 0.1 (0.0-0.1); BASOPHILS % 0.3 % (0.0-1.0); EOSINOPHILS % 0.1 % (0.0-6.0); HEMATOCRIT 30.9 % (38.2-49.6); HEMOGLOBIN 9.9 g/dL (14.0-18.0); LYMPHOCYTES # (AUTO) 1.6 (1.0-3.2); LYMPHOCYTES % 8.2 % (18.0-39.1); MEAN CORPUSCULAR HEMOGLOBIN 28.9 pg (28-32); MEAN CORPUSCULAR VOLUME 90.4 fL (81-99); MONOCYTES # (AUTO) 1.5 (0.2-0.8); MONOCYTES % 7.6 % (4.4-11.3); NEUTROPHILS % 83.2 % (38.7-80.0); PLATELET COUNT 278 x10e3/uL (140-360); RED BLOOD COUNT 3.42 x10e6/uL (4.3-5.7); RED CELL DISTRIBUTION WIDTH 13.8 % (11.7-14.4); WHITE BLOOD COUNT 19.27 x10e3/uL (4.8-10.8)
[2024-07-23] MEDS: SODIUM CHLORIDE 0.9% 1000ML 1,000 ML IV ONE (19:29)
[2024-07-23] MEDS: ACETAMINOPHEN 325 MG TAB PO ONE (19:29)
[2024-07-23 19:34] LABS: INR 1.13; PROTHROMBIN TIME 15.1 seconds (11.9-14.5)
[2024-07-23 19:35] LABS: PARTIAL THROMBOPLASTIN TIME 40.4 seconds (23.8-35.5)
[2024-07-23 19:44] LABS: ALANINE AMINOTRANSFERASE 44 IU/L (0-55); ALBUMIN 2.1 g/dL (3.5-5.0); ALBUMIN/GLOBULIN RATIO 0.4 (0.8-2.0); ALKALINE PHOSPHATASE 148 IU/L (40-150); ANION GAP 15.8 mmol/L (8-16); BILIRUBIN,TOTAL 0.4 mg/dL (0.2-1.2); BLOOD UREA NITROGEN 13 mg/dL (7-26); BUN/CREATININE RATIO 20 (6-25); CALCIUM 8.7 mg/dL (8.4-10.2); CARBON DIOXIDE 20 mmol/L (22-29); CHLORIDE 98 mmol/L (98-107); CREATININE, SERUM 0.65 mg/dL (0.72-1.25); EST GLOMERULAR FILTRATION RATE 107 ML/MIN (>=60); GLUCOSE 74 mg/dL (74-118); SODIUM 131 mmol/L (136-145); TOTAL PROTEIN 6.9 g/dL (6.5-8.1)
[2024-07-23 19:47] LABS: CREATINE KINASE < 7 IU/L (30-200)
[2024-07-23 19:48] LABS: POTASSIUM 2.8 mmol/L (3.5-5.1)
[2024-07-23 19:50] LABS: TROPONIN I 0.007 ng/mL (0-0.300)
[2024-07-23] MEDS ORDERED: DEXTROSE 50% SYRINGE 50 ML IV PRN (20:15)
[2024-07-23] MEDS ORDERED: KCL 20MEQ/.9 SOD CHL 1,000 ML IV ONE (20:15)
[2024-07-23] MEDS ORDERED: IOPAMIDOL 370 MG/ML 100 ML INFUS..BTL INJ ONE (20:30)
[2024-07-23 20:35] VITALS: PULSE 79; RESP 20; O2SAT 95
[2024-07-23] MEDS: POTASSIUM CHLORIDE 20 MEQ TAB CR PO STA (20:45)
[2024-07-23] MEDS: Vancomycin IV 1 GM in SODIUM CHLORIDE 0.9% 250ML 250 ML IV SCH (20:46)
[2024-07-23 20:51] VITALS: PULSE 82; RESP 25; TEMP 100.1
[2024-07-23] MEDS: INSULIN REGULAR, HUMAN 100 UNIT/1 ML SQ SCH (21:00)
[2024-07-23 21:14] LABS: BILIRUBIN,URINE SMALL (NEGATIVE); CLARITY,URINE SL CLOUDY (CLEAR); COLOR,URINE YELLOW (YELLOW); GLUCOSE, URINE NEGATIVE (NEGATIVE); KETONES,URINE TRACE (NEGATIVE); LEUKOCYTE ESTERASE ,URINE SMALL (NEGATIVE); NITRITE,URINE NEGATIVE (NEGATIVE); PH,URINE 5.5 (5 - 7); PROTEIN,URINE DIPSTICK 2+ (NEGATIVE); URINE UROBILINOGEN 2 mg/dL (0.2 - 1)
[2024-07-23 21:27] LABS: AMORPHOUS SEDIMENT,URINE MODERATE (FEW); BACTERIA,URINE MODERATE /HPF; YEAST,URINE MODERATE
[2024-07-23 22:40] VITALS: BP 120/62; PULSE 80; RESP 18; TEMP 97.8; O2SAT 94
[2024-07-24] VITALS (8 sets, daily range): BP systolic 119–146; BP diastolic 51–77; PULSE 88–95; RESP 18–19; TEMP 97.8–102.5; O2SAT 95–100
[2024-07-24] MEDS: KCL 20MEQ/.9 SOD CHL 1,000 ML IV ONE (00:44)
[2024-07-24] MEDS ORDERED: BENZONATATE 100 MG CAP PO PRN (00:45)
[2024-07-24] MEDS ORDERED: DEXTROSE 50% SYRINGE 50 ML IV PRN (00:45)
[2024-07-24] MEDS ORDERED: ALBUTEROL/IPRATROPIUM 3 ML NEB NEB PRN (00:45)
[2024-07-24] MEDS ORDERED: DIPHENHYDRAMINE HCL 25 MG CAP PO PRN (00:45)
[2024-07-24] MEDS ORDERED: DOCUSATE SODIUM 100 MG CAP PO PRN (00:45)
[2024-07-24] MEDS ORDERED: POTASSIUM CHLORIDE 20 MEQ TAB CR PO PRN (00:45)
[2024-07-24] MEDS ORDERED: ACETAMINOPHEN 325 MG TAB PO PRN (00:45)
[2024-07-24] MEDS ORDERED: SIMETHICONE 80 MG CHEW PO PRN (00:45)
[2024-07-24] MEDS: Morphine 4mg INJECTION 4 MG/ML INJ IV PRN (01:14)
[2024-07-24 06:29] LABS: BASOPHILS # (AUTO) 0.1 (0.0-0.1); BASOPHILS % 0.3 % (0.0-1.0); EOSINOPHILS % 0.1 % (0.0-6.0); HEMATOCRIT 32.1 % (38.2-49.6); HEMOGLOBIN 10.3 g/dL (14.0-18.0); LYMPHOCYTES # (AUTO) 1.7 (1.0-3.2); LYMPHOCYTES % 8.9 % (18.0-39.1); MEAN CORPUSCULAR HEMOGLOBIN 29.4 pg (28-32); MEAN CORPUSCULAR HGB CONC 32.1 g/dL (31-35); MEAN CORPUSCULAR VOLUME 91.7 fL (81-99); MONOCYTES # (AUTO) 1.3 (0.2-0.8); MONOCYTES % 6.6 % (4.4-11.3); NEUTROPHILS # (AUTO) 15.7 (2.1-6.9); NEUTROPHILS % 83.5 % (38.7-80.0); PLATELET COUNT 392 x10e3/uL (140-360); RED CELL DISTRIBUTION WIDTH 13.8 % (11.7-14.4)
[2024-07-24 06:58] LABS: ANION GAP 10.3 mmol/L (8-16); BILIRUBIN,TOTAL 0.5 mg/dL (0.2-1.2); CALCIUM 8.3 mg/dL (8.4-10.2); CREATININE, SERUM 0.54 mg/dL (0.72-1.25); TOTAL PROTEIN 6.6 g/dL (6.5-8.1)
[2024-07-24 06:59] LABS: POTASSIUM 3.3 mmol/L (3.5-5.1)
[2024-07-24 07:06] LABS: ALBUMIN 1.9 g/dL (3.5-5.0); ALBUMIN/GLOBULIN RATIO 0.4 (0.8-2.0)
[2024-07-24] MEDS: PANTOPRAZOLE SOD 40 MG TABEC PO SCH (08:37)
[2024-07-24] MEDS: Vancomycin IV 1 GM in SODIUM CHLORIDE 0.9% 250ML 250 ML IV SCH (08:37)
[2024-07-24] MEDS ORDERED: ENOXAPARIN SOD INJ 40 MG/0.4 ML SYR SC SCH (17:00)
[2024-07-24] MEDS: ENOXAPARIN SOD INJ 40 MG/0.4 ML SYR SC SCH (17:51)
[2024-07-24] MEDS: MELATONIN 5 MG TABLET PO PRN (20:35)
[2024-07-25] VITALS (9 sets, daily range): BP systolic 115–168; BP diastolic 57–80; PULSE 68–95; RESP 16–20; TEMP 97.8–98.4; O2SAT 94–100
[2024-07-25 06:37] LABS: BASOPHILS # (AUTO) 0.1 (0.0-0.1); BASOPHILS % 0.4 % (0.0-1.0); EOSINOPHILS # (AUTO) 0.1 (0.0-0.4); EOSINOPHILS % 0.3 % (0.0-6.0); HEMATOCRIT 29.8 % (38.2-49.6); HEMOGLOBIN 9.5 g/dL (14.0-18.0); LYMPHOCYTES % 10.7 % (18.0-39.1); MEAN CORPUSCULAR HEMOGLOBIN 29.4 pg (28-32); MEAN CORPUSCULAR HGB CONC 31.9 g/dL (31-35); MEAN CORPUSCULAR VOLUME 92.3 fL (81-99); MONOCYTES # (AUTO) 1.3 (0.2-0.8); NEUTROPHILS # (AUTO) 15.1 (2.1-6.9); NEUTROPHILS % 80.6 % (38.7-80.0); PLATELET COUNT 354 x10e3/uL (140-360); RED BLOOD COUNT 3.23 x10e6/uL (4.3-5.7); WHITE BLOOD COUNT 18.73 x10e3/uL (4.8-10.8)
[2024-07-25 07:06] LABS: ANION GAP 14.3 mmol/L (8-16); CALCIUM 8.5 mg/dL (8.4-10.2); CREATININE, SERUM 0.56 mg/dL (0.72-1.25)
[2024-07-25 07:14] LABS: POTASSIUM 3.3 mmol/L (3.5-5.1)
[2024-07-25] MEDS ORDERED: FENTANYL CITRATE/PF 100MCG/2 ML INJ ONE ×3 (12:56→14:16)
[2024-07-25] MEDS ORDERED: LIDOCAINE HCL 2% LOCAL INJ 5 ML SDV VIAL INJ ONE (12:56)
[2024-07-25] MEDS ORDERED: MIDAZOLAM HCL 2 MG/2 ML VIAL ONE (12:56)
[2024-07-25] MEDS ORDERED: PROPOFOL IV EMULSION 10 MG/ML 20 ML VIAL ONE (12:57)
[2024-07-25] MEDS ORDERED: ACETAMINOPHEN 1000 MG/100 ML 100 ML IV ONE (12:57)
[2024-07-25] MEDS ORDERED: BUPIVACAINE HCL 0.5% INJ 30 ML VIAL INJ ONE (13:23)
[2024-07-25] MEDS ORDERED: Vancomycin IV 1 GM VIAL ONE ×3 (13:23→14:29)
[2024-07-25] MEDS ORDERED: BUPIVACAINE 0.25% 30ML SDV ONE (13:31)
[2024-07-25] MEDS ORDERED: EPINEPHRINE HCL 1:1000 1ML 1 MG/ML AMP ONE (13:32)
[2024-07-25] MEDS ORDERED: DEXAMETHASONE SOD PHOS INJ 4 MG/ML SDV ONE (14:04)
[2024-07-25] MEDS ORDERED: ONDANSETRON HCL INJ 2MG/ML 2ML 2 MG/ML VIAL ONE (14:04)
[2024-07-25] MEDS ORDERED: HYDROMORPHONE 2MG/ML ONE (14:21)
[2024-07-25] MEDS: ONDANSETRON HCL INJ 2MG/ML 2ML 2 MG/ML VIAL IV PRN (21:00)
[2024-07-26] VITALS (9 sets, daily range): BP systolic 119–157; BP diastolic 50–88; PULSE 58–79; RESP 17–20; TEMP 97.6–99.4; O2SAT 96–100
[2024-07-26 06:10] LABS: BASOPHILS # (AUTO) 0.1 (0.0-0.1); BASOPHILS % 0.3 % (0.0-1.0); HEMATOCRIT 25.8 % (38.2-49.6); HEMOGLOBIN 8.3 g/dL (14.0-18.0); LYMPHOCYTES # (AUTO) 1.6 (1.0-3.2); LYMPHOCYTES % 6.4 % (18.0-39.1); MEAN CORPUSCULAR HEMOGLOBIN 29.3 pg (28-32); MEAN CORPUSCULAR HGB CONC 32.2 g/dL (31-35); MEAN CORPUSCULAR VOLUME 91.2 fL (81-99); MONOCYTES % 4.1 % (4.4-11.3); NEUTROPHILS # (AUTO) 21.9 (2.1-6.9); NEUTROPHILS % 88.1 % (38.7-80.0); PLATELET COUNT 474 x10e3/uL (140-360); RED BLOOD COUNT 2.83 x10e6/uL (4.3-5.7); WHITE BLOOD COUNT 24.86 x10e3/uL (4.8-10.8)
[2024-07-26 06:42] LABS: ANION GAP 13.8 mmol/L (8-16); CALCIUM 8.6 mg/dL (8.4-10.2); CREATININE, SERUM 0.63 mg/dL (0.72-1.25); POTASSIUM 3.8 mmol/L (3.5-5.1)
[2024-07-26 08:46] LABS: LYMPHOCYTES % (MANUAL) 7 % (19-48); MONOCYTES % (MANUAL) 3 % (3.4-9.0); MYELOCYTES % (MANUAL) 1 % (0-0); NEUTROPHILS % (MANUAL) 89 % (40-74); PLATELET ESTIMATE ADEQUATE; PLATELET MORPHOLOGY COMMENT NORMAL; RBC MORPHOLOGY COMMENT NORMAL
[2024-07-26] MEDS: RIFAMPIN 300 MG CAP PO SCH (17:34)
[2024-07-26] MEDS ORDERED: VANCOMYCIN 1.25GM/250 ML (PEG) 250 ML IV ONE (20:00)
[2024-07-26] MEDS: VANCOMYCIN 1.25GM/250 ML (PEG) 250 ML IV SCH (21:33)
[2024-07-27] VITALS (9 sets, daily range): BP systolic 123–181; BP diastolic 63–80; PULSE 72–82; RESP 14–18; TEMP 98.6–99.8; O2SAT 96–100
[2024-07-27 06:03] LABS: BASOPHILS # (AUTO) 0.1 (0.0-0.1); BASOPHILS % 0.3 % (0.0-1.0); EOSINOPHILS # (AUTO) 0.1 (0.0-0.4); EOSINOPHILS % 0.4 % (0.0-6.0); HEMATOCRIT 25.7 % (38.2-49.6); HEMOGLOBIN 8.2 g/dL (14.0-18.0); LYMPHOCYTES # (AUTO) 2.6 (1.0-3.2); LYMPHOCYTES % 15.6 % (18.0-39.1); MEAN CORPUSCULAR HEMOGLOBIN 29.8 pg (28-32); MEAN CORPUSCULAR HGB CONC 31.9 g/dL (31-35); MEAN CORPUSCULAR VOLUME 93.5 fL (81-99); MONOCYTES % 5.9 % (4.4-11.3); NEUTROPHILS # (AUTO) 12.7 (2.1-6.9); NEUTROPHILS % 76.2 % (38.7-80.0); PLATELET COUNT 471 x10e3/uL (140-360); RED BLOOD COUNT 2.75 x10e6/uL (4.3-5.7); RED CELL DISTRIBUTION WIDTH 14.1 % (11.7-14.4)
[2024-07-27 06:23] LABS: ANION GAP 12.8 mmol/L (8-16); CREATININE, SERUM 0.61 mg/dL (0.72-1.25); POTASSIUM 3.8 mmol/L (3.5-5.1)
[2024-07-27] MEDS: HYDRALAZINE HCL 20 MG/ML VIAL IV PRN (11:52)
[2024-07-28] VITALS (10 sets, daily range): BP systolic 159–177; BP diastolic 66–72; PULSE 69–85; RESP 16–20; TEMP 97.7–98.4; O2SAT 97–100
[2024-07-28 05:29] LABS: BASOPHILS % 0.2 % (0.0-1.0); EOSINOPHILS # (AUTO) 0.1 (0.0-0.4); EOSINOPHILS % 0.6 % (0.0-6.0); HEMATOCRIT 25.1 % (38.2-49.6); LYMPHOCYTES # (AUTO) 2.1 (1.0-3.2); LYMPHOCYTES % 12.8 % (18.0-39.1); MEAN CORPUSCULAR HEMOGLOBIN 29.4 pg (28-32); MEAN CORPUSCULAR HGB CONC 31.9 g/dL (31-35); MEAN CORPUSCULAR VOLUME 92.3 fL (81-99); MONOCYTES # (AUTO) 0.9 (0.2-0.8); MONOCYTES % 5.9 % (4.4-11.3); NEUTROPHILS # (AUTO) 12.7 (2.1-6.9); NEUTROPHILS % 79.2 % (38.7-80.0); PLATELET COUNT 338 x10e3/uL (140-360); RED BLOOD COUNT 2.72 x10e6/uL (4.3-5.7); WHITE BLOOD COUNT 16.05 x10e3/uL (4.8-10.8)
[2024-07-28 05:49] LABS: ANION GAP 12.6 mmol/L (8-16); CALCIUM 8.8 mg/dL (8.4-10.2); CREATININE, SERUM 0.57 mg/dL (0.72-1.25); POTASSIUM 3.6 mmol/L (3.5-5.1)
[2024-07-28] MEDS: HYDROCODONE/APAP 5MG-325MG TAB PO PRN (08:31)
[2024-07-28] MEDS: LOSARTAN POTASSIUM 100 MG TAB PO SCH (16:57)
[2024-07-29] VITALS (9 sets, daily range): BP systolic 161–170; BP diastolic 63–72; PULSE 72–76; RESP 17–19; TEMP 97.9–98.8; O2SAT 96–99
[2024-07-29 06:16] LABS: BASOPHILS % 0.2 % (0.0-1.0); EOSINOPHILS # (AUTO) 0.2 (0.0-0.4); EOSINOPHILS % 1.2 % (0.0-6.0); HEMATOCRIT 25.5 % (38.2-49.6); LYMPHOCYTES # (AUTO) 1.9 (1.0-3.2); LYMPHOCYTES % 13.5 % (18.0-39.1); MEAN CORPUSCULAR HEMOGLOBIN 29.3 pg (28-32); MEAN CORPUSCULAR HGB CONC 31.4 g/dL (31-35); MEAN CORPUSCULAR VOLUME 93.4 fL (81-99); MONOCYTES # (AUTO) 0.8 (0.2-0.8); MONOCYTES % 5.6 % (4.4-11.3); NEUTROPHILS # (AUTO) 11.1 (2.1-6.9); NEUTROPHILS % 78.1 % (38.7-80.0); PLATELET COUNT 194 x10e3/uL (140-360); RED BLOOD COUNT 2.73 x10e6/uL (4.3-5.7); RED CELL DISTRIBUTION WIDTH 14.1 % (11.7-14.4); WHITE BLOOD COUNT 14.26 x10e3/uL (4.8-10.8)
[2024-07-29 06:39] LABS: ANION GAP 12.7 mmol/L (8-16); CREATININE, SERUM 0.53 mg/dL (0.72-1.25); POTASSIUM 3.7 mmol/L (3.5-5.1)
[2024-07-30] VITALS (10 sets, daily range): BP systolic 130–170; BP diastolic 62–86; PULSE 68–84; RESP 16–20; TEMP 97.9–99.1; O2SAT 95–100
[2024-07-30 06:00] LABS: BASOPHILS % 0.3 % (0.0-1.0); EOSINOPHILS # (AUTO) 0.2 (0.0-0.4); EOSINOPHILS % 1.4 % (0.0-6.0); HEMATOCRIT 24.9 % (38.2-49.6); LYMPHOCYTES % 15.6 % (18.0-39.1); MEAN CORPUSCULAR HEMOGLOBIN 29.5 pg (28-32); MEAN CORPUSCULAR HGB CONC 31.7 g/dL (31-35); MEAN CORPUSCULAR VOLUME 92.9 fL (81-99); MONOCYTES # (AUTO) 0.8 (0.2-0.8); MONOCYTES % 6.2 % (4.4-11.3); NEUTROPHILS # (AUTO) 9.8 (2.1-6.9); NEUTROPHILS % 75.2 % (38.7-80.0); PLATELET COUNT 378 x10e3/uL (140-360); RED BLOOD COUNT 2.68 x10e6/uL (4.3-5.7); RED CELL DISTRIBUTION WIDTH 14.2 % (11.7-14.4); WHITE BLOOD COUNT 12.98 x10e3/uL (4.8-10.8)
[2024-07-30 06:09] LABS: HEMOGLOBIN 7.9 g/dL (14.0-18.0)
[2024-07-30 06:28] LABS: ANION GAP 10.5 mmol/L (8-16); CALCIUM 8.8 mg/dL (8.4-10.2); CREATININE, SERUM 0.52 mg/dL (0.72-1.25); POTASSIUM 3.5 mmol/L (3.5-5.1)
[2024-07-30] MEDS: LIDOCAINE 4% PATCH TP PRN (23:15)
[2024-07-31 03:29] VITALS: BP 188/69; PULSE 76; RESP 18; TEMP 98.2; O2SAT 99
[2024-07-31 07:25] VITALS: PULSE 78; RESP 18; O2SAT 99
[2024-07-31 08:00] VITALS: BP 131/58; PULSE 78; RESP 18; TEMP 97.7; O2SAT 100
[2024-07-31] MEDS: HYDROCODONE/APAP 5MG-325MG TAB PO PRN (11:47)
[2024-07-31 12:14] VITALS: BP 153/68; PULSE 76; RESP 17; TEMP 97.7; O2SAT 99
[2024-07-31 16:00] VITALS: BP 165/63; PULSE 69; RESP 18; TEMP 97.5; O2SAT 100
== END 2024-07-31 18:50 | DRG 854 ==
LOC: ER 18:40 → ERHOLD 20:27 → MED/SURG2 22:40
PROVIDERS: ADMIT Internal Medicine; ATTEND Internal Medicine
PROC: 0QDC0ZZ Extraction of Left Lower Femur, Open Approach (ICD-10-PCS; 2024-07-25)
PROC: 0QDH0ZZ Extraction of Left Tibia, Open Approach (ICD-10-PCS; 2024-07-25)
PROC: 0KDT0ZZ Extraction of Left Lower Leg Muscle, Open Approach (ICD-10-PCS; 2024-07-25)
PROC: 0S9D00Z Drainage of Left Knee Joint with Drainage Device, Open Approach (ICD-10-PCS; principal; 2024-07-25 13:58)
DX: A41.02 Sepsis due to Methicillin resistant Staphylococcus aureus (principal); L02.416 Cutaneous abscess of left lower limb; M00.062 Staphylococcal arthritis, left knee; M86.8X6 Other osteomyelitis, lower leg; M60.062 Infective myositis, left lower leg; L03.116 Cellulitis of left lower limb; E11.69 Type 2 diabetes mellitus with other specified complication; I49.3 Ventricular premature depolarization; E87.6 Hypokalemia; I10 Essential (primary) hypertension; E78.5 Hyperlipidemia, unspecified; Z71.3 Dietary counseling and surveillance; Z68.28 Body mass index [BMI] 28.0-28.9, adult
CPT/HCPCS: 36415; 71045; 73701; 80048; 80053; 80202; 81001; 82550; 82948; 83036; 83605; 83735; 84484; 85025; 85610; 85730; 86140; 87040; 87071; 87075; 87086; 87186; 87205; 93005; 93306; 94799; 96372; 99252; 99284; C1713; J0171; J0360; J0690; J1100; J1650; J2003; J2250; J2270; J2405; J2543; J7030; J7050; Q9967